=== PATIENT | female | born 1980 | race American Indian/Alaskan Native ===

== ENCOUNTER 2016-06-28 13:19 | Emergency (ER) | payer OTHER ==
[2016-06-28 18:22] VITALS: BP 140/84
--- NOTE | 2016-06-28 18:28 | Emergency Department Report ---
HPI - General Chief Complaint: Back Pain/Injury Time Seen by Provider: 06/28/16 17:31 - HPI HPI: 36-year-old female presents today with piercing pain on the right side of her back with deep breath. Patient states that the pain comes and goes. Describes it as 5 out of 10 when it comes and states otherwise it's just the discomfort. Denies change in activity prior to symptom. Denies cough, cold symptoms, wheezing, chest pain, shortness of breath, nausea, vomiting, abdominal pain. Denies trying any medication for pain relief. Patient states that she has been stressed since yesterday and the pain may be associated. ED Past Medical Hx - Past Medical History Previous Medical History?: No - Surgical History Past Surgical History?: No - Social History Smoking Status: Never Smoker Substance Use Type: None - Medications Home Medications: Home Medications Medication Instructions Recorded Confirmed Last Taken Type Cyclobenzaprine HCl [Flexeril 5 MG 5 mg PO TID #14 tab 06/28/16 Unknown Rx TAB] Ibuprofen [Motrin 600 MG tab] 600 mg PO Q8H PRN #30 tablet 06/28/16 Unknown Rx ED Review of Systems ROS: Stated complaint: PINCHING IN UPPER BACK SHOULDER AREA Other details as noted in HPI Constitutional: denies: chills, fever, malaise Eyes: denies: eye pain ENT: denies: ear pain, throat pain, congestion Respiratory: denies: cough, shortness of breath, wheezing Cardiovascular: denies: chest pain, palpitations Endocrine: no symptoms reported Gastrointestinal: denies: abdominal pain, nausea, vomiting Musculoskeletal: back pain Neurological: denies: headache, weakness, numbness, paresthesias Physical Exam - Physical Exam Vital Signs: Vital Signs 06/28/16 06/28/16 13:41 18:21 Temperature 98.2 F 98.6 F Pulse Rate 86 88 Respiratory 18 18 Rate Blood Pressure 141/95 Blood Pressure 140/84 [Left] O2 Sat by Pulse 100 100 Oximetry Physical Exam: GENERAL: The patient is well-developed and well-nourished. Patient is in NAD. HEAD: Normocephalic. Atraumatic. CHEST/LUNGS: Clear to auscultation throughout. HEART/CARDIOVASCULAR: Regular rate and rhythm. ABDOMEN: Abdomen is soft, nontender. No guarding or rebound tenderness. EXTREMITIES: Full range of motion. Peripheral pulses intact. Capillary refill less than 2 seconds. BACK: Full ROM. No midline or paraspinal tenderness to palpation. Negative straight leg raise bilaterally. NEURO: Alert and oriented x 3. Normal gait. ED Course Vital Signs 06/28/16 06/28/16 13:41 18:21 Temperature 98.2 F 98.6 F Pulse Rate 86 88 Respiratory 18 18 Rate Blood Pressure 141/95 Blood Pressure 140/84 [Left] O2 Sat by Pulse 100 100 Oximetry ED Medical Decision Making - Lab Data Vital Signs 06/28/16 06/28/16 13:41 18:21 Temperature 98.2 F 98.6 F Pulse Rate 86 88 Respiratory 18 18 Rate Blood Pressure 141/95 Blood Pressure 140/84 [Left] O2 Sat by Pulse 100 100 Oximetry - Medical Decision Making 36-year-old female presents today with with muscle strain of her upper back. Patient is in no acute distress at this time. She will be discharged home and is encouraged to follow up with a primary care provider. He will be sent home on Flexeril and ibuprofen and is encouraged to return to the emergency room for any worsening symptoms. Critical care attestation.: If time is entered above; I have spent that time in minutes in the direct care of this critically ill patient, excluding procedure time. ED Disposition Clinical Impression: Muscle strain Disposition: DISCHARGED TO HOME OR SELFCARE Is pt being admited?: No Does the pt Need Aspirin: No Condition: Stable Instructions: Muscle Strain (ED) Additional Instructions: Follow-up with primary care provider. Return to the emergency department if symptoms worsen. Prescriptions: Cyclobenzaprine HCl [Flexeril 5 MG TAB] 5 mg PO TID #14 tab Ibuprofen [Motrin 600 MG tab] 600 mg PO Q8H PRN #30 tablet PRN Reason: Pain Referrals: PRIMARY CARE, [Primary Care Provider] - 3-5 Days [facility] [Outside] - 3-5 Days Forms: Work/School Release Form(ED) Time of Disposition: 18:25
== END 2016-06-28 18:42 | disposition home or self-care (01) ==
LOC: ED 13:19
DX: S29.012A Strain of muscle and tendon of back wall of thorax, initial encounter (principal); X58.XXXA Exposure to other specified factors, initial encounter; Y93.9 Activity, unspecified; Y99.9 Unspecified external cause status; Y92.89 Other specified places as the place of occurrence of the external cause
CPT/HCPCS: 99282